=== PATIENT | female | born 1990 | race Caucasian/White ===

== ENCOUNTER 2018-04-29 13:21 | Emergency (ER) | payer BC, OTHER ==
[~2018-04-29] VITALS: Ht 170.2 cm; Wt 72.6 kg
[2018-04-29] MEDS ORDERED: IBUPROFEN 600600 M1 PO (14:39)
[2018-04-29] MEDS ORDERED: NORFLEX100 MG PO (14:39)
[2018-04-29 14:45] VITALS: BP 110/66
== END 2018-04-29 14:46 | disposition home or self-care (01) ==
LOC: ER 13:21
DX: S30.811A Abrasion of abdominal wall, initial encounter (principal); S60.511A Abrasion of right hand, initial encounter; S09.90XA Unspecified injury of head, initial encounter; V89.2XXA Person injured in unspecified motor-vehicle accident, traffic, initial encounter; Y93.89 Activity, other specified; Y92.89 Other specified places as the place of occurrence of the external cause; Y99.8 Other external cause status